=== PATIENT | male | born 1985 | race Caucasian/White ===

== ENCOUNTER 2021-04-26 16:49 | Emergency (ER) | payer OTHER ==
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
[2021-04-26 18:25] VITALS: BP 135/72; PULSE 68
[2021-04-26 18:26] VITALS: O2SAT 96
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
== END 2021-04-26 18:30 | disposition home or self-care (01) ==
LOC: ED 16:49
DX: S29.011A Strain of muscle and tendon of front wall of thorax, initial encounter (principal); V86.55XA Driver of 3- or 4- wheeled all-terrain vehicle (ATV) injured in nontraffic accident, initial encounter; Y93.89 Activity, other specified; Y92.89 Other specified places as the place of occurrence of the external cause
CPT/HCPCS: 71046; 71100; 73030; 99283